=== PATIENT | male | born 1955 | race Caucasian/White ===

== ENCOUNTER 2018-06-27 11:09 | Emergency (ER) | payer MEDICARE, MEDICAID ==
[~2018-06-27] VITALS: Ht 167.6 cm; Wt 98.0 kg
[2018-06-27] MEDS ORDERED: HYDROCODONE/ACETAMINOPHEN 5/325MG TABLET PO ONE (12:00)
[2018-06-27] MEDS ORDERED: IBUPROFEN 800MG TABLET PO ONE (12:00)
[2018-06-27 15:30] VITALS: BP 130/64
== END 2018-06-27 16:27 | disposition home or self-care (01) ==
LOC: ER 11:14
DX: S52.514A Nondisplaced fracture of right radial styloid process, initial encounter for closed fracture (principal); S82.62XA Displaced fracture of lateral malleolus of left fibula, initial encounter for closed fracture; S63.592A Other specified sprain of left wrist, initial encounter; W01.0XXA Fall on same level from slipping, tripping and stumbling without subsequent striking against object, initial encounter; Y93.89 Activity, other specified; Y92.89 Other specified places as the place of occurrence of the external cause; I11.9 Hypertensive heart disease without heart failure; I21.A9 Other myocardial infarction type; Z95.5 Presence of coronary angioplasty implant and graft
CPT/HCPCS: 29125; 29515; 73110; 73610; 73630; 99284